=== PATIENT | female | born 1965 | race African-American/Black ===

== ENCOUNTER → 2016-12-05 | Outpatient (CLI) | payer OTHER ==
[2016-12-05 09:28] LABS: Basophils % (A) 0 %; CH 32.1; CHCM 35.6; Eosinophils # (A) 0.2 k/uL (0-0.7); Eosinophils % (A) 3 %; HCT 44.2 % (34.0-46.0); HDW 3.04; HGB 14.9 gm/dL (11.4-16.0); Luc # (Auto) 0.13; Luc % (Auto) 2; Lymphocytes # (A) 1.9 k/uL (1.0-4.8); Lymphocytes % (A) 30 %; MCH 30.6 pg (25.0-35.0); MCHC 33.7 g/dL (31.0-37.0); MCV 90.8 fL (80.0-100.0); Mean Platelet Volume 7.2; Monocytes # (A) 0.3 k/uL (0-1.0); Monocytes % (A) 5 %; Neutrophils # (A) 3.8 k/uL (1.3-7.7); Neutrophils % (A) 59 %; RBC 4.87 m/uL (3.80-5.40); RDW 13.5 % (11.5-15.5); WBC 6.3 k/uL (3.8-10.6); WBC (Perox) 6.42
[2016-12-05 09:38] LABS: ALT 31 U/L (9-52); AST 18 U/L (14-36); Alkaline Phosphatase 66 U/L (38-126); Anion Gap 10 mmol/L; Blood Urea Nitrogen 9 mg/dL (7-17); Calcium 9.5 mg/dL (8.4-10.2); Carbon Dioxide 27 mmol/L (22-30); Chloride 105 mmol/L (98-107); Cholesterol 147 mg/dL (<200); Creatine Kinase 142 U/L (30-135); Glucose 92 mg/dL (74-99); HDL Cholesterol 46 mg/dL (40-60); Non-African American GFR(MDRD) >60 (>60 ml/min/1.73 sqM); Sodium 142 mmol/L (137-145); Total Bilirubin 0.6 mg/dL (0.2-1.3); Total Protein 7.2 g/dL (6.3-8.2); Triglycerides 176 mg/dL (<150)
[2016-12-05 10:54] LABS: C Reactive Protein 5.6 mg/L (<10.0)
[2016-12-05 11:05] LABS: Hemoglobin A1C 5.8 % (4.2-6.1)
[2016-12-05 11:12] LABS: Erythrocyte Sedimentation Rate 10 mm/hr (0-20)
== END | disposition home or self-care (01) ==
LOC: LABWHC1 08:54
PROVIDERS: ATTEND Internal Medicine
DX: E11.9 Type 2 diabetes mellitus without complications (principal); J44.9 Chronic obstructive pulmonary disease, unspecified; E78.5 Hyperlipidemia, unspecified; I10 Essential (primary) hypertension; E03.9 Hypothyroidism, unspecified; E55.9 Vitamin D deficiency, unspecified; M81.0 Age-related osteoporosis without current pathological fracture
CPT/HCPCS: 36415; 80053; 80061; 82306; 82550; 83036; 84443; 85025; 85652; 86140

== ENCOUNTER 2016-12-23 07:51 | Emergency (ER) | payer OTHER ==
[2016-12-23 08:02] VITALS: BP 143/63; PULSE 84; RESP 20; TEMP 98
--- NOTE | 2016-12-23 08:17 | ED ---
General Adult HPI - General Chief complaint: Allergic Reaction Stated complaint: allergic reaction Time Seen by Provider: 12/23/16 08:10 Source: patient, RN notes reviewed Mode of arrival: ambulatory Limitations: no limitations - History of Present Illness Initial comments: 51-year-old female presents emergency Department chief complaint ALLERGIC reaction. Patient states she present swan positive patch on her left arm. She states she had 2 on states that his rationale. States it's very itchy. Patient is not taking medication for this. She has never uses in the past. Patient also complains of left hand index finger swelling and discomfort. She states is a small scratch her now to swollen. She states her tetanus is up-to- date. Patient states she has full range of motion. Patient offers no other complaints. Patient denies fever, chills - Related Data Previous Rx's Medication Instructions Recorded Methocarbamol [Robaxin] 1,000 mg PO TID PRN #15 tab 08/27/16 Cephalexin [Keflex] 500 mg PO Q6HR #40 cap 12/23/16 Triamcinolone 0.1% Cream [Kenalog] 1 applicatio TOPICAL BID #30 gram 12/23/16 Allergies Allergy/AdvReac Type Severity Reaction Status Date / Time No Known Allergies Allergy Verified 12/23/16 08:02 Review of Systems ROS Statement: Those systems with pertinent positive or pertinent negative responses have been documented in the HPI. ROS Other: All systems not noted in ROS Statement are negative. Past Medical History Past Medical History: Diabetes Mellitus, Hyperlipidemia, Hypertension History of Any Multi-Drug Resistant Organisms: None Reported Past Surgical History: Hysterectomy, Tubal Ligation Additional Past Surgical History / Comment(s): eye/tear duct surg Past Psychological History: No Psychological Hx Reported Smoking Status: Current every day smoker Past Alcohol Use History: None Reported Past Drug Use History: None Reported General Exam Limitations: no limitations General appearance: alert, in no apparent distress Head exam: Present: atraumatic, normocephalic, normal inspection Respiratory exam: Present: normal lung sounds bilaterally. Absent: respiratory distress, wheezes, rales, rhonchi, stridor Cardiovascular Exam: Present: regular rate, normal rhythm, normal heart sounds. Absent: systolic murmur, diastolic murmur, rubs, gallop, clicks Extremities exam: Present: other (Left hand index finger there is a small superficial laceration approximately 0.5 cm with swelling of the digit patient is full range of motion neurovascular intact capillary refill less than 2 seconds there is no erythematous extends past the MCP) Skin exam: Present: rash (Erythematous areas measuring 2 x 2 centimeters on the left upper arm region appears to be contact dermatitis) Course Vital Signs 12/23/16 08:01 Temperature 98.0 F Pulse Rate 84 Respiratory 20 Rate Blood Pressure 143/63 O2 Sat by Pulse 98 Oximetry Disposition Clinical Impression: Contact dermatitis, Cellulitis, finger Disposition: HOME SELF-CARE Condition: Stable Instructions: Contact Dermatitis (ED) Additional Instructions: Please return to the Emergency Department if symptoms worsen or any other concerns. Prescriptions: Cephalexin [Keflex] 500 mg PO Q6HR #40 cap Triamcinolone 0.1% Cream [Kenalog] 1 applicatio TOPICAL BID #30 gram Referrals: Dewey Ling MD [Primary Care Provider] - 1-2 days Time of Disposition: 08:17
== END 2016-12-23 08:26 | disposition home or self-care (01) ==
LOC: EC 07:51
DX: L25.9 Unspecified contact dermatitis, unspecified cause (principal); L03.012 Cellulitis of left finger; F17.200 Nicotine dependence, unspecified, uncomplicated
CPT/HCPCS: 99283

== ENCOUNTER → 2017-02-22 | Outpatient (CLI) | payer OTHER ==
[2017-02-22 15:32] LABS: Basophils % (A) 0 %; CH 32.1; CHCM 35.3; Eosinophils # (A) 0.3 k/uL (0-0.7); Eosinophils % (A) 4 %; HCT 44.1 % (34.0-46.0); HDW 3.09; HGB 15.2 gm/dL (11.4-16.0); Luc # (Auto) 0.17; Luc % (Auto) 2; Lymphocytes # (A) 2.1 k/uL (1.0-4.8); Lymphocytes % (A) 26 %; MCH 31.4 pg (25.0-35.0); MCHC 34.4 g/dL (31.0-37.0); MCV 91.4 fL (80.0-100.0); Mean Platelet Volume 7.3; Monocytes # (A) 0.4 k/uL (0-1.0); Monocytes % (A) 5 %; Neutrophils # (A) 4.9 k/uL (1.3-7.7); Neutrophils % (A) 62 %; RBC 4.83 m/uL (3.80-5.40); RDW 13.8 % (11.5-15.5); WBC 7.9 k/uL (3.8-10.6); WBC (Perox) 8.22
--- NOTE | 2017-02-22 15:42 | XR ---
EXAMINATION TYPE: XR chest 2V DATE OF EXAM: 02/22/2017 3:35 PM COMPARISON: Prior chest x-ray 07 December 2015 HISTORY: Bronchitis, cough TECHNIQUE: Frontal and lateral views of the chest are obtained. FINDINGS: There is no focal air space opacity, pleural effusion, or pneumothorax seen. The cardiac silhouette size is within normal limits. The osseous structures are intact. IMPRESSION: No acute cardiopulmonary process.
== END | disposition home or self-care (01) ==
LOC: LABWHC1 15:02
PROVIDERS: ATTEND Internal Medicine
DX: J06.9 Acute upper respiratory infection, unspecified (principal); J12.9 Viral pneumonia, unspecified
CPT/HCPCS: 36415; 71020; 85025

== ENCOUNTER → 2017-03-06 | Outpatient (CLI) | payer OTHER ==
[2017-03-06 09:57] LABS: Appearance,Urine Cloudy (Clear); Bacteria,Urine Rare /hpf; Bilirubin,Urine Negative (Negative); Glucose,Urine (UA) Negative (Negative); Ketones,Urine Negative (Negative); Leukocyte Esterase,Urine Negative (Negative); Mucus,Urine Moderate /hpf; Nitrite,Urine Negative (Negative); Particle Count 9272; Protein,Urine 2+ (Negative); RBC,Urine 2 /hpf (0-5); Specific Gravity,Urine 1.022 (1.001-1.035); Squamous Epithelial Cell,Urine 8 /hpf (0-4); UA Billing (MACRO vs. MICRO) MICRO; WBC,Urine 1 /hpf (0-5)
[2017-03-06 10:11] LABS: Anion Gap 10 mmol/L; Blood Urea Nitrogen 9 mg/dL (7-17); Calcium 9.6 mg/dL (8.4-10.2); Carbon Dioxide 23 mmol/L (22-30); Chloride 108 mmol/L (98-107); Glucose 110 mg/dL (74-99); Non-African American GFR(MDRD) >60 (>60 ml/min/1.73 sqM); Potassium 3.7 mmol/L (3.5-5.1); Sodium 141 mmol/L (137-145)
[2017-03-06 12:17] LABS: Hemoglobin A1C 5.7 % (4.2-6.1)
[2017-03-06 16:14] LABS: Creatinine,Urine Random 494.7 mg/dL
== END | disposition home or self-care (01) ==
LOC: LABWHC1 09:25
PROVIDERS: ATTEND Internal Medicine
DX: E11.21 Type 2 diabetes mellitus with diabetic nephropathy (principal); I10 Essential (primary) hypertension; R80.9 Proteinuria, unspecified
CPT/HCPCS: 36415; 80048; 81001; 82043; 82570; 83036; 84156

== ENCOUNTER → 2017-04-09 | Outpatient (CLI) | payer OTHER ==
[2017-04-09 09:33] LABS: Appearance,Urine Cloudy (Clear); Bacteria,Urine Rare /hpf; Bilirubin,Urine Negative (Negative); Glucose,Urine (UA) Negative (Negative); Ketones,Urine Negative (Negative); Leukocyte Esterase,Urine Negative (Negative); Mucus,Urine Occasional /hpf; Nitrite,Urine Negative (Negative); PH, Urine 5.5 (5.0-8.0); Particle Count 14398; Protein,Urine 2+ (Negative); RBC,Urine 4 /hpf (0-5); Specific Gravity,Urine 1.023 (1.001-1.035); Squamous Epithelial Cell,Urine 31 /hpf (0-4); UA Billing (MACRO vs. MICRO) MICRO; WBC,Urine 7 /hpf (0-5)
[2017-04-09 09:56] LABS: ALT 26 U/L (9-52); AST 17 U/L (14-36); Alkaline Phosphatase 69 U/L (38-126); Anion Gap 10 mmol/L; Blood Urea Nitrogen 12 mg/dL (7-17); Calcium 9.7 mg/dL (8.4-10.2); Carbon Dioxide 22 mmol/L (22-30); Chloride 110 mmol/L (98-107); Glucose 104 mg/dL (74-99); Non-African American GFR(MDRD) >60 (>60 ml/min/1.73 sqM); Sodium 142 mmol/L (137-145); Total Bilirubin 0.6 mg/dL (0.2-1.3); Total Protein 7.4 g/dL (6.3-8.2)
[2017-04-09 16:20] LABS: Urine Creatinine 385.1 mg/dL
== END | disposition home or self-care (01) ==
LOC: LABWHC1 08:49
PROVIDERS: ATTEND Internal Medicine
DX: E11.9 Type 2 diabetes mellitus without complications (principal); R31.9 Hematuria, unspecified; R80.9 Proteinuria, unspecified
CPT/HCPCS: 36415; 80053; 81001; 82043; 82570; 84156; 87086

== ENCOUNTER → 2017-04-30 | Outpatient (CLI) | payer OTHER ==
--- NOTE | 2017-04-30 15:45 | US ---
EXAMINATION TYPE: US kidneys/renal and bladder DATE OF EXAM: 04/30/2017 COMPARISON: CLINICAL HISTORY: N20.0 Nephrolithiasis. Patient states protein in urine. EXAM MEASUREMENTS: Right Kidney: 11.1 x 5.6 x 4.3 cm Left Kidney: 11.4 x 5.1 x 5.3 cm Right Kidney: Medial anechoic lesion in mid pole = 5.6 x 5.4 x 4.1 cm Left Kidney: lateral lower pole cystic lesion = 1.0 x 0.9 x 0.7 cm Bladder: distended. wnl as visualized. Left jet seen There is no evidence for hydronephrosis at this point in time. No nephrolithiasis is seen. The urin gucci bladder is anechoic. Bilateral ureteral jets are seen. IMPRESSION: Bilateral renal cysts. No solid mass is detected.
[2017-04-30 16:11] LABS: Total Protein 7.1 g/dL (6.3-8.2)
[2017-04-30 20:12] LABS: ANA w/Reflex to Titer NEGATIVE (NEGATIVE)
[2017-05-01 14:31] LABS: C-ANCA <1:20 Titer (<1:20); P-ANCA <1:20 Titer (<1:20)
[2017-05-02 06:30] LABS: Complement Total (CH50) 106 U/mL (42 - 95)
== END | disposition home or self-care (01) ==
LOC: RADUSWWP 14:58
PROVIDERS: ATTEND Internal Medicine
DX: N28.1 Cyst of kidney, acquired (principal); R80.9 Proteinuria, unspecified; M35.9 Systemic involvement of connective tissue, unspecified; C90.00 Multiple myeloma not having achieved remission
CPT/HCPCS: 76770; 82040; 84155; 84165; 86038; 86160; 86162; 86225; 86235; 86255; 86334; 86335

== ENCOUNTER 2017-06-16 16:59 | Emergency (ER) | payer OTHER ==
[2017-06-16 17:20] VITALS: TEMP 98.4
--- NOTE | 2017-06-16 17:41 | ED ---
General Adult HPI - General Chief complaint: ENT Stated complaint: sore throat Time Seen by Provider: 06/16/17 17:32 Source: patient, RN notes reviewed Mode of arrival: ambulatory Limitations: no limitations - History of Present Illness Initial comments: 52-year-old female presents to the emergency Department chief complaint of sore throat. Patient states that she has had a sore throat for the past 2 or 3 days. Patient states she called her doctor if she is not back in the office until Sunday. Patient denies any fever chills. She has a cough cold symptoms. She denies any nausea vomiting with this. Patient states that she just continues to have the sore throat so she was concerned.Patient denies any recent fever, chills, shortness of breath, chest pain, back pain, abdominal pain , nausea vomiting, numbness or tingling, dysuria or hematuria, constipation or diarrhea, headaches or visual changes, or any other current symptoms. - Related Data Home Medications Medication Instructions Recorded Confirmed Atorvastatin Calcium [Lipitor] 20 mg PO HS 06/16/17 06/16/17 Cholecalciferol (Vitamin D3) 2,000 units PO DAILY 06/16/17 06/16/17 [Vitamin D3] Hydrochlorothiazide 12.5 mg PO DAILY 06/16/17 06/16/17 [Hydrochlorothiazide] Losartan Potassium [Losartan 50 mg PO DAILY 06/16/17 06/16/17 Potassium] amLODIPine [Norvasc] 10 mg PO DAILY 06/16/17 06/16/17 sitaGLIPtin PHOS/metFORMIN HCL 50 mg PO BID 06/16/17 06/16/17 [Janumet 50-500 mg Tablet] Previous Rx's Medication Instructions Recorded Lidocaine Viscous 2% [Xylocaine 15 ml MUCOUS MEM BID #100 ml 06/16/17 Viscous] Allergies Allergy/AdvReac Type Severity Reaction Status Date / Time No Known Allergies Allergy Verified 06/16/17 17:20 Review of Systems ROS Statement: Those systems with pertinent positive or pertinent negative responses have been documented in the HPI. ROS Other: All systems not noted in ROS Statement are negative. Past Medical History Past Medical History: Diabetes Mellitus, Hyperlipidemia, Hypertension History of Any Multi-Drug Resistant Organisms: None Reported Past Surgical History: Hysterectomy, Tubal Ligation Additional Past Surgical History / Comment(s): eye/tear duct surg Past Psychological History: No Psychological Hx Reported Smoking Status: Current every day smoker Past Alcohol Use History: None Reported Past Drug Use History: None Reported General Exam - General Exam Comments Initial Comments: General exam: Alert, active, comfortable in no apparent distress Head: Normocephalic Eyes: Normal reaction of pupils, equal size, normal range of extraocular motion Ears: normal external ear canals, pink tympanic membranes with normal cone of light Nose: clear with pink turbinates Throat: no erythema or exudates with normal sized tonsils Neck: no masses, no nuchal rigidity Chest: no chest wall deformity Lungs: equal air entry with no crackles or wheeze CVS: S1 and S2 normal with no audible mumurs, regular rhythm Spine: no scoliosis or deformity Skin: no rashes Neurological: No focal deficits, tone is normal in all 4 extremities Limitations: no limitations Course Vital Signs 06/16/17 17:18 Temperature 98.4 F Pulse Rate 96 Respiratory 17 Rate Blood Pressure 124/70 O2 Sat by Pulse 99 Oximetry Medical Decision Making - Medical Decision Making 52-year-old female presents emergency Department chief complaint of sore throat. at this time strep is negative. we discussed care at home. we discussed return parameters and follow up and all questions have been answered. patient will be discharged home. - Lab Data Lab Results 06/16/17 Range/Units 18:13 Group A Strep Rapid Negative (Negative) Disposition Clinical Impression: Acute viral pharyngitis Disposition: HOME SELF-CARE Condition: Stable Instructions: Pharyngitis (ED) Additional Instructions: Please use medication as discussed. Please follow up with family doctor if symptoms have not improved over the next two days. Please return to the emergency room if your symptoms increase or worsen or for any other concerns. Prescriptions: Lidocaine Viscous 2% [Xylocaine Viscous] 15 ml MUCOUS MEM BID #100 ml Referrals: Dewey Ling MD [Primary Care Provider] - 1-2 days Time of Disposition: 18:40
[2017-06-16 18:55] VITALS: BP 116/75; PULSE 91; RESP 16
== END 2017-06-16 19:01 | disposition home or self-care (01) ==
LOC: EC 16:59
DX: J02.8 Acute pharyngitis due to other specified organisms (principal); B97.89 Other viral agents as the cause of diseases classified elsewhere; E11.9 Type 2 diabetes mellitus without complications; E78.5 Hyperlipidemia, unspecified; I10 Essential (primary) hypertension; F17.200 Nicotine dependence, unspecified, uncomplicated; Z79.84 Long term (current) use of oral hypoglycemic drugs; Z79.899 Other long term (current) drug therapy
CPT/HCPCS: 87081; 87430; 99283

== ENCOUNTER → 2017-10-22 | Outpatient (CLI) | payer OTHER ==
--- NOTE | 2017-10-22 11:56 | BD ---
EXAMINATION TYPE: MG DEXA axial skeleton. DATE OF EXAM: 10/22/2017 COMPARISON: NONE CLINICAL HISTORY: PT IS A 52 YR OLD FEMALE: ICD-10 CODE: Z13.820 SCREENING FOR OSTEOPOROSIS Height: 61.7 Weight: 194 FRAX RISK QUESTIONS: Alcohol (3 or more units per day): NO Family History (Parent hip fracture): NO Glucocorticoids (More than 3mos): NO (Ex: prednisone, prednisolone, methylprednisolone, dexamethasone, and hydrocortisone). History of Fracture in Adulthood: NO Secondary Osteoporosis: YES 1. Type 1 Diabetes: NO 2. Hyperthyroidism: NO 3. Menopause before 45: YES AT 45 YRS OLD 4. Malnutrition: NO 5. Chronic liver disease: NO Rheumatoid Arthritis: NO Current Tobacco Use: YES, 1 PAC DAILY RISK FACTORS HISTORY OF: Family History of Osteoporosis: NO Active: NO Diet low in dairy products/other sources of calcium: NO Postmenopausal woman: TOTAL HYST AT AGE 45 YRS OLD Hyperparathyroidism: NO Adrenal Insufficiency: NO MEDICATIONS: Additional Medications: BP MEDS, ORAL DIABETIC MEDS, VIT D, REFLUX MEDS, STATINS FOR CHOLESTEROL Additional History: DIABETIC, HYPERTENSION EXAM MEASUREMENTS: Bone mineral densitometry was performed using the [employer] System. Bone mineral density as measured about the Lumbar spine is: ----- L1-L4(G/cm2): 1.214 T Score Values are as follows: ----- L1: 0.9 ----- L2: -0.7 ----- L3: 0.1 ----- L4: 0.6 ----- L1-L4: 0.3 Bone mineral density THIS IS HER FIRST BONE DENSITY TEST Bone mineral density about the R hip (g/cm2): 1.210 Bone mineral density about the L hip (g/cm2): 1.239 T Score values are as follows: -----R Neck: 0.1 -----L Neck: 0.6 -----R Total: 1.6 -----L Total: 1.8 Bone mineral density BASELINE STUDY FRAX%S: THERE IS A 1.6% CHANCE OF A MAJOR OSTEOPOROTIC FX AND A 0.0% FOR HIP FX....PROBABILITY OF FX IN 10 YRS TIME IMPRESSION: Normal (Values between +1 and -1 indicate normal bone mass). Consider repeating this study in 5 year s or sooner if there is some new clinical indication. NOTE: T-SCORE=SD OF THE YOUNG ADULT MEAN.
--- NOTE | 2017-10-23 09:19 | MM ---
Reason for exam: screening (asymptomatic). Last mammogram was performed 1 year and 10 months ago. History: Patient is postmenopausal. Family history of breast cancer in paternal cousin at age 50. Physical Findings: A clinical breast exam by your physician is recommended on an annual basis and results should be correlated with mammographic findings. MG Screening Mammo w CAD Bilateral CC and MLO view(s) were taken. Prior study comparison: December 07, 2015, bilateral MG 3d diag mammo w/cad [facility]. There are scattered fibroglandular densities. There is chronic nodularity in the right breast. No significant changes when compared with prior studies. ASSESSMENT: Benign, BI-RAD 2 RECOMMENDATION: Routine screening mammogram of both breasts in 1 year.
== END | disposition home or self-care (01) ==
LOC: RADMAMWWP 09:12
PROVIDERS: ATTEND Obstetrics & Gynecology
DX: Z12.31 Encounter for screening mammogram for malignant neoplasm of breast (principal); Z80.3 Family history of malignant neoplasm of breast; Z13.820 Encounter for screening for osteoporosis
CPT/HCPCS: 77067; 77080

== ENCOUNTER → 2017-12-21 | Outpatient (CLI) | payer OTHER ==
[2017-12-21 09:50] LABS: Basophils % (A) 0 %; Eosinophils # (A) 0.1 k/uL (0-0.7); Eosinophils % (A) 2 %; HCT 45.4 % (34.0-46.0); Lymphocytes # (A) 1.8 k/uL (1.0-4.8); Lymphocytes % (A) 30 %; MCH 30.7 pg (25.0-35.0); MCHC 35.2 g/dL (31.0-37.0); MCV 87.3 fL (80.0-100.0); Mean Platelet Volume 7.1; Monocytes # (A) 0.3 k/uL (0-1.0); Monocytes % (A) 5 %; Neutrophils # (A) 3.7 k/uL (1.3-7.7); Neutrophils % (A) 62 %; Platelet Count 247 k/uL (150-450); RBC 5.19 m/uL (3.80-5.40); RDW 12.8 % (11.5-15.5)
[2017-12-21 10:24] LABS: ALT 22 U/L (9-52); AST 18 U/L (14-36); Albumin 3.9 g/dL (3.5-5.0); Alkaline Phosphatase 66 U/L (38-126); Anion Gap 8 mmol/L; Blood Urea Nitrogen 12 mg/dL (7-17); C Reactive Protein 10.1 mg/L (<10.0); Calcium 9.9 mg/dL (8.4-10.2); Carbon Dioxide 30 mmol/L (22-30); Chloride 104 mmol/L (98-107); Cholesterol 209 mg/dL (<200); Creatine Kinase 100 U/L (30-135); Glucose 106 mg/dL (74-99); HDL Cholesterol 46 mg/dL (40-60); LDL Cholesterol,Calculated 135 mg/dL (0-99); Potassium 4.3 mmol/L (3.5-5.1); Sodium 142 mmol/L (137-145); Total Bilirubin 0.5 mg/dL (0.2-1.3); Triglycerides 140 mg/dL (<150)
[2017-12-21 10:33] LABS: T4, Free (Free Thyroxine) 0.92 ng/dL (0.78-2.19)
[2017-12-21 12:51] LABS: Erythrocyte Sedimentation Rate 15 mm/hr (0-20)
[2017-12-21 21:01] LABS: Hemoglobin A1C 5.8 % (4.0-6.0)
== END ==
LOC: LABWHC1 08:57
PROVIDERS: ATTEND Internal Medicine
DX: D64.9 Anemia, unspecified (principal); J44.9 Chronic obstructive pulmonary disease, unspecified; E11.9 Type 2 diabetes mellitus without complications; E78.5 Hyperlipidemia, unspecified; I10 Essential (primary) hypertension; E55.9 Vitamin D deficiency, unspecified
CPT/HCPCS: 36415; 80053; 80061; 82306; 82550; 83036; 83735; 84439; 84443; 85025; 85652; 86140

== ENCOUNTER 2018-03-03 19:39 | Emergency (ER) | payer OTHER ==
[2018-03-03 19:47] VITALS: BP 124/80; PULSE 68; RESP 18; TEMP 98.4
[2018-03-03] MEDS ORDERED: IPRATROPIUM-ALBUTEROL 3 ML NEB INHALATION STA (20:02)
--- NOTE | 2018-03-03 20:12 | ED ---
URI HPI - General Chief Complaint: Upper Respiratory Infection Stated Complaint: congestion Time Seen by Provider: 03/03/18 19:59 Source: patient Mode of arrival: ambulatory Limitations: no limitations - History of Present Illness Initial Comments: 53-year-old female presents with upper respiratory symptoms for the last week. Patient having cough congestion in her chest. Patient is bringing up phlegm at times it does feel tight and wheezy. Patient does have a history of COPD and using her albuterol rescue inhaler as needed. No fevers. No head congestion. No leg edema. MD Complaint: cough - Related Data Home Medications Medication Instructions Recorded Confirmed Atorvastatin Calcium [Lipitor] 20 mg PO HS 06/16/17 06/16/17 Cholecalciferol (Vitamin D3) 2,000 units PO DAILY 06/16/17 06/16/17 [Vitamin D3] Hydrochlorothiazide 12.5 mg PO DAILY 06/16/17 06/16/17 [Hydrochlorothiazide] Losartan Potassium [Losartan 50 mg PO DAILY 06/16/17 06/16/17 Potassium] amLODIPine [Norvasc] 10 mg PO DAILY 06/16/17 06/16/17 sitaGLIPtin PHOS/metFORMIN HCL 50 mg PO BID 06/16/17 06/16/17 [Janumet 50-500 mg Tablet] Previous Rx's Medication Instructions Recorded Lidocaine Viscous 2% [Xylocaine 15 ml MUCOUS MEM BID #100 ml 06/16/17 Viscous] Albuterol Nebulized [Ventolin 2.5 mg INHALATION Q4H PRN #20 nebu 03/03/18 Nebulized] Azithromycin [Zithromax Z-pack] 250 mg PO DIRECTED #6 tab 03/03/18 methylPREDNISolone [Medrol] 4 mg PO DIRECTED #1 tab.ds.pk 03/03/18 Allergies Allergy/AdvReac Type Severity Reaction Status Date / Time No Known Allergies Allergy Verified 03/03/18 19:47 Review of Systems ROS Statement: Those systems with pertinent positive or pertinent negative responses have been documented in the HPI. ROS Other: All systems not noted in ROS Statement are negative. Constitutional: Denies: fever, chills ENT: Denies: ear pain, throat pain Respiratory: Reports: cough, wheezes Cardiovascular: Denies: chest pain Endocrine: Denies: fatigue Gastrointestinal: Denies: nausea Neurological: Denies: headache, weakness Past Medical History Past Medical History: Diabetes Mellitus, Hyperlipidemia, Hypertension History of Any Multi-Drug Resistant Organisms: None Reported Past Surgical History: Hysterectomy, Tubal Ligation Additional Past Surgical History / Comment(s): eye/tear duct surg Past Psychological History: No Psychological Hx Reported Smoking Status: Current every day smoker Past Alcohol Use History: None Reported Past Drug Use History: None Reported General Exam Limitations: no limitations General appearance: alert, in no apparent distress Eye exam: Present: normal appearance, PERRL, EOMI. Absent: scleral icterus, conjunctival injection, periorbital swelling ENT exam: Present: normal exam, mucous membranes moist Neck exam: Present: normal inspection. Absent: tenderness, meningismus, lymphadenopathy Respiratory exam: Present: normal lung sounds bilaterally, wheezes. Absent: respiratory distress, rales, rhonchi, stridor Cardiovascular Exam: Present: regular rate, normal rhythm, normal heart sounds. Absent: systolic murmur, diastolic murmur, rubs, gallop, clicks Neurological exam: Present: alert, oriented X3, CN II-XII intact Psychiatric exam: Present: normal affect, normal mood Skin exam: Present: warm, dry, intact, normal color. Absent: rash Course Vital Signs 03/03/18 03/03/18 03/03/18 19:45 20:26 20:40 Temperature 98.4 F Pulse Rate 68 68 68 Respiratory 18 Rate Blood Pressure 124/80 O2 Sat by Pulse 100 Oximetry Medical Decision Making - Medical Decision Making Reviewed x-ray negative for any acute processes. Patient aware we'll treat with oral antibiotic and steroids along with patient to continue with inhalers her up dressed as needed follow up closely with family doctor return if symptoms worsen. Disposition Clinical Impression: Bronchitis Disposition: HOME SELF-CARE Condition: Good Instructions: Acute Bronchitis (ED) Prescriptions: Albuterol Nebulized [Ventolin Nebulized] 2.5 mg INHALATION Q4H PRN #20 nebu PRN Reason: Bronchospasm Azithromycin [Zithromax Z-pack] 250 mg PO DIRECTED #6 tab methylPREDNISolone [Medrol] 4 mg PO DIRECTED #1 tab.ds.pk Is patient prescribed a controlled substance at d/c from ED?: No If prescribed controlled substance>3 days was MAPS reviewed?: No When asked, does pt state using other controlled substances?: No Referrals: Dewey Ling MD [Primary Care Provider] - 1-2 days Time of Disposition: 22:39
--- NOTE | 2018-03-03 20:15 | XR ---
EXAMINATION TYPE: XR chest 2V DATE OF EXAM: 03/03/2018 COMPARISON: 02/22/2017 HISTORY: 53-year-old female with pain TECHNIQUE: Frontal and lateral views FINDINGS: The cardiomediastinal silhouette, aorta, and pulmonary vasculature are within normal limits. Lungs an d pleural spaces are clear. IMPRESSION: No acute cardiopulmonary process.
== END 2018-03-03 20:46 | disposition home or self-care (01) ==
LOC: EC 19:39
DX: J40 Bronchitis, not specified as acute or chronic (principal); E11.9 Type 2 diabetes mellitus without complications; E78.5 Hyperlipidemia, unspecified; I10 Essential (primary) hypertension; F17.200 Nicotine dependence, unspecified, uncomplicated; Z79.84 Long term (current) use of oral hypoglycemic drugs; Z79.899 Other long term (current) drug therapy
CPT/HCPCS: 71046; 94640; 99283

== ENCOUNTER 2018-04-24 21:19 | Emergency (ER) | payer OTHER ==
[2018-04-24 21:24] VITALS: RESP 18
[2018-04-24] MEDS ORDERED: ASPIRIN 81 MG PO STA (22:18)
[2018-04-24 22:41] LABS: Basophils % (A) 0 %; Eosinophils # (A) 0.3 k/uL (0-0.7); Eosinophils % (A) 3 %; HCT 45.8 % (34.0-46.0); HGB 15.9 gm/dL (11.4-16.0); Lymphocytes # (A) 2.5 k/uL (1.0-4.8); Lymphocytes % (A) 32 %; MCH 30.4 pg (25.0-35.0); MCHC 34.7 g/dL (31.0-37.0); MCV 87.6 fL (80.0-100.0); Mean Platelet Volume 7.6; Monocytes # (A) 0.4 k/uL (0-1.0); Monocytes % (A) 5 %; Neutrophils # (A) 4.5 k/uL (1.3-7.7); Neutrophils % (A) 58 %; Platelet Count 234 k/uL (150-450); RBC 5.22 m/uL (3.80-5.40); RDW 13.4 % (11.5-15.5); WBC 7.8 k/uL (3.8-10.6)
[2018-04-24 22:50] LABS: Partial Thromboplastin Time 24.3 sec (22.0-30.0); Prothrombin Time 9.7 sec (9.0-12.0)
[2018-04-24 22:51] LABS: ALT 30 U/L (9-52); AST 21 U/L (14-36); Alkaline Phosphatase 63 U/L (38-126); Anion Gap 11 mmol/L; Blood Urea Nitrogen 11 mg/dL (7-17); Calcium 9.8 mg/dL (8.4-10.2); Carbon Dioxide 25 mmol/L (22-30); Chloride 104 mmol/L (98-107); Glucose 103 mg/dL (74-99); Magnesium 1.7 mg/dL (1.6-2.3); Potassium 3.8 mmol/L (3.5-5.1); Sodium 140 mmol/L (137-145); Total Bilirubin 0.2 mg/dL (0.2-1.3); Total Protein 6.6 g/dL (6.3-8.2)
[2018-04-24 23:01] LABS: Creatine Kinase 121 U/L (30-135)
--- NOTE | 2018-04-24 23:09 | XR ---
EXAMINATION TYPE: XR chest 2V DATE OF EXAM: 04/24/2018 COMPARISON: 03/03/2018 HISTORY: Chest pain TECHNIQUE: Frontal and lateral views of the chest are obtained. FINDINGS: Heart and mediastinum are normal. Lungs are clear. Diaphragm is normal. The bony thorax ap pears intact. There are chest leads. IMPRESSION: Normal chest. Inspiration however is decreased compared to last exam.
[2018-04-24 23:14] LABS: Creatine Kinase MB 0.7 ng/mL (0.0-2.4); Troponin I <0.012 ng/mL (0.000-0.034)
--- NOTE | 2018-04-25 00:53 | ED ---
General Adult HPI - General Chief complaint: Chest Pain Stated complaint: arm & chest pain Source: patient Mode of arrival: ambulatory Limitations: no limitations - History of Present Illness Initial comments: Dictation was produced using [employer] dictation software. please excuse any grammatical, word or spelling errors. Chief Complaint: 53-year-old -[place]e female with past medical history of diabetes, COPD, dyslipidemia presents with chest pain 2 days. History of Present Illness: Worse that she has been having chest pain for the last 2 days. Patient states that the pain is dull. Pain is associated with left arm pain. She does report having arthritis in the shoulders which she thought initially was causing her symptoms.. No associated diaphoresis. Patient has not seen a tooth cutter spur in the past. Denies any shortness of breath. She came today because she was concerned that her chest pain might be related to her heart. Denies any constitutional symptoms. Patient is active tobacco abuser. She states that she's been compliant with her medications. The ROS documented in this emergency department record has been reviewed and confirmed by me. Those systems with pertinent positive or negative responses have been documented in the HPI. All other systems are other negative and/or noncontributory. - Related Data Home Medications Medication Instructions Recorded Confirmed Atorvastatin Calcium [Lipitor] 20 mg PO HS 06/16/17 06/16/17 Cholecalciferol (Vitamin D3) 2,000 units PO DAILY 06/16/17 06/16/17 [Vitamin D3] Hydrochlorothiazide 12.5 mg PO DAILY 06/16/17 06/16/17 Losartan Potassium 50 mg PO DAILY 06/16/17 06/16/17 amLODIPine [Norvasc] 10 mg PO DAILY 06/16/17 06/16/17 sitaGLIPtin PHOS/metFORMIN HCL 50 mg PO BID 06/16/17 06/16/17 [Janumet 50-500 mg Tablet] Previous Rx's Medication Instructions Recorded Lidocaine Viscous 2% [Xylocaine 15 ml MUCOUS MEM BID #100 ml 06/16/17 Viscous] Albuterol Nebulized [Ventolin 2.5 mg INHALATION Q4H PRN #20 nebu 03/03/18 Nebulized] Azithromycin [Zithromax Z-pack] 250 mg PO DIRECTED #6 tab 03/03/18 methylPREDNISolone [Medrol] 4 mg PO DIRECTED #1 tab.ds.pk 03/03/18 Aspirin 81 mg PO DAILY #30 chewable 04/25/18 Allergies Allergy/AdvReac Type Severity Reaction Status Date / Time No Known Allergies Allergy Verified 04/24/18 21:22 Review of Systems ROS Statement: Those systems with pertinent positive or pertinent negative responses have been documented in the HPI. ROS Other: All systems not noted in ROS Statement are negative. Past Medical History Past Medical History: Diabetes Mellitus, Hyperlipidemia, Hypertension History of Any Multi-Drug Resistant Organisms: None Reported Past Surgical History: Hysterectomy, Tubal Ligation Additional Past Surgical History / Comment(s): eye/tear duct surg Past Psychological History: No Psychological Hx Reported Smoking Status: Current every day smoker Past Alcohol Use History: None Reported Past Drug Use History: None Reported General Exam - General Exam Comments Initial Comments: PHYSICAL EXAM: General Impression: Alert and oriented x3, not in acute distress HEENT: Normocephalic atraumatic, extra-ocular movements intact, pupils equal and reactive to light bilaterally, mucous membranes moist. Cardiovascular: Heart regular rate and rhythm, S1&S2 audible, no murmurs, rubs or gallops Chest: Lungs clear to auscultation bilaterally, no rhonchi, no wheeze, no rales Abdomen: Bowel sounds present, abdomen soft, non-tender, non-distended, no organomegaly Musculoskeletal: Pulses present and equal in all extremities, no peripheral edema Motor: Power 5/5 bilaterally, no focal deficits noted Neurological: CN II-XII grossly intact, no focal motor or sensory deficits noted Skin: Intact with no visualized rashes Psych: Normal affect and mood Limitations: no limitations Course Vital Signs 04/24/18 04/24/18 04/24/18 21:22 22:01 22:11 Temperature 98.6 F Pulse Rate 94 Pulse Rate [ 76 Bilateral Sitting Radial] Respiratory 18 18 Rate Blood Pressure 132/93 O2 Sat by Pulse 100 Oximetry 04/24/18 04/25/18 22:24 00:32 Temperature 97.2 F L Pulse Rate 74 68 Pulse Rate [ Bilateral Sitting Radial] Respiratory 18 18 Rate Blood Pressure 126/78 126/82 O2 Sat by Pulse 100 98 Oximetry Medical Decision Making - Medical Decision Making ED course: 53-year-old -[place] female with multiple comorbidities presents with chest pain. This chest pain is atypical with typical features. Vital signs upon arrival are within acceptable limits. Laboratory evaluation was obtained. CBC is unremarkable. Coag panel unremarkable. Metabolic panel is normal. Troponin is negative. EKG is benign. Patient given aspirin.. Discussed with patient that she would likely benefit from a stress test. Recommended that patient be placed in the hospital for observation to obtain cardiac stress test. Patient states she needed to go home and will follow up for outpatient stress test. Patient has multiple risk factors. Discussed with patient that she has risk of experiencing major adverse cardiac event within the next 30 days. Her heart score is 2. Patient is agreeable to be discharged with outpatient referral to cardiology where she may receive a stress test in approximately the next 48 hours. Patient given strict return percussions come to the emergency department if she is experiencing any dull chest ache associated with diaphoresis or radiation to the upper extremities. Patient is understandable and agreeable. Patient given prescription for aspirin to be taken daily. EKG Interpretation: A 12 lead EKG was obtained. It was interpreted by myself and attending physician. There is a P wave before every QRS complex. Rate is 65. Rhythm is normal sinus rhythm, MD and 140, QRS 88, QTC 424. QT is not prolonged. No ST segment depression or elevationto suggest heart strain or ischemia.. Overall, this EKG is unremarkable - Lab Data Result diagrams: 04/24/18 22:20 04/24/18 22:20 Lab Results 04/24/18 04/24/18 04/24/18 Range/Units 22:20 22:20 22:20 WBC 7.8 (3.8-10.6) k/uL RBC 5.22 (3.80-5.40) m/uL Hgb 15.9 (11.4-16.0) gm/dL Hct 45.8 (34.0-46.0) % MCV 87.6 (80.0-100.0) fL MCH 30.4 (25.0-35.0) pg MCHC 34.7 (31.0-37.0) g/dL RDW 13.4 (11.5-15.5) % Plt Count 234 (150-450) k/uL Neutrophils % 58 % Lymphocytes % 32 % Monocytes % 5 % Eosinophils % 3 % Basophils % 0 % Neutrophils # 4.5 (1.3-7.7) k/uL Lymphocytes # 2.5 (1.0-4.8) k/uL Monocytes # 0.4 (0-1.0) k/uL Eosinophils # 0.3 (0-0.7) k/uL Basophils # 0.0 (0-0.2) k/uL PT (9.0-12.0) sec INR (<1.2) APTT (22.0-30.0) sec Sodium 140 (137-145) mmol/L Potassium 3.8 (3.5-5.1) mmol/L Chloride 104 (98-107) mmol/L Carbon Dioxide 25 (22-30) mmol/L Anion Gap 11 mmol/L BUN 11 (7-17) mg/dL Creatinine 0.60 (0.52-1.04) mg/dL Est GFR (CKD-EPI)AfAm >90 (>60 ml/min/1.73 sqM) Est GFR (CKD-EPI)NonAf >90 (>60 ml/min/1.73 sqM) Glucose 103 H (74-99) mg/dL Calcium 9.8 (8.4-10.2) mg/dL Magnesium 1.7 (1.6-2.3) mg/dL Total Bilirubin 0.2 (0.2-1.3) mg/dL AST 21 (14-36) U/L ALT 30 (9-52) U/L Alkaline Phosphatase 63 (38-126) U/L Total Creatine Kinase 121 (30-135) U/L CK-MB (CK-2) 0.7 (0.0-2.4) ng/mL CK-MB (CK-2) Rel Index 0.6 Troponin I <0.012 (0.000-0.034) ng/mL Total Protein 6.6 (6.3-8.2) g/dL Albumin 4.0 (3.5-5.0) g/dL 04/24/18 Range/Units 22:20 WBC (3.8-10.6) k/uL RBC (3.80-5.40) m/uL Hgb (11.4-16.0) gm/dL Hct (34.0-46.0) % MCV (80.0-100.0) fL MCH (25.0-35.0) pg MCHC (31.0-37.0) g/dL RDW (11.5-15.5) % Plt Count (150-450) k/uL Neutrophils % % Lymphocytes % % Monocytes % % Eosinophils % % Basophils % % Neutrophils # (1.3-7.7) k/uL Lymphocytes # (1.0-4.8) k/uL Monocytes # (0-1.0) k/uL Eosinophils # (0-0.7) k/uL Basophils # (0-0.2) k/uL PT 9.7 (9.0-12.0) sec INR 1.0 (<1.2) APTT 24.3 (22.0-30.0) sec Sodium (137-145) mmol/L Potassium (3.5-5.1) mmol/L Chloride (98-107) mmol/L Carbon Dioxide (22-30) mmol/L Anion Gap mmol/L BUN (7-17) mg/dL Creatinine (0.52-1.04) mg/dL Est GFR (CKD-EPI)AfAm (>60 ml/min/1.73 sqM) Est GFR (CKD-EPI)NonAf (>60 ml/min/1.73 sqM) Glucose (74-99) mg/dL Calcium (8.4-10.2) mg/dL Magnesium (1.6-2.3) mg/dL Total Bilirubin (0.2-1.3) mg/dL AST (14-36) U/L ALT (9-52) U/L Alkaline Phosphatase (38-126) U/L Total Creatine Kinase (30-135) U/L CK-MB (CK-2) (0.0-2.4) ng/mL CK-MB (CK-2) Rel Index Troponin I (0.000-0.034) ng/mL Total Protein (6.3-8.2) g/dL Albumin (3.5-5.0) g/dL Disposition Clinical Impression: Chest pain Disposition: HOME SELF-CARE Condition: Fair Instructions: Chest Pain (ED) Prescriptions: Aspirin 81 mg PO DAILY #30 chewable Is patient prescribed a controlled substance at d/c from ED?: No Referrals: Dewey Ling MD [Primary Care Provider] - 1-2 days Decision Time: 00:53
[2018-04-25 01:09] VITALS: BP 121/78; PULSE 72; TEMP 97.9
== END 2018-04-25 01:11 | disposition home or self-care (01) ==
LOC: EC 21:19
DX: R07.9 Chest pain, unspecified (principal); M79.602 Pain in left arm; E11.9 Type 2 diabetes mellitus without complications; E78.5 Hyperlipidemia, unspecified; I10 Essential (primary) hypertension; F17.200 Nicotine dependence, unspecified, uncomplicated; Z90.710 Acquired absence of both cervix and uterus; Z98.51 Tubal ligation status; Z79.84 Long term (current) use of oral hypoglycemic drugs; Z79.899 Other long term (current) drug therapy
CPT/HCPCS: 36415; 71046; 80053; 82550; 82553; 83735; 84484; 85025; 85610; 85730; 93005; 99285

== ENCOUNTER → 2018-07-18 | Outpatient (CLI) | payer OTHER ==
[2018-07-18 17:23] LABS: LDL Cholesterol, Direct 82.9 mg/dL (0.0-129.0)
[2018-07-18 17:31] LABS: Vitamin D 25 Hydroxy 28.2 ng/mL (30.0-100.0)
[2018-07-18 21:49] LABS: Hemoglobin A1C 5.5 % (4.0-6.0)
== END | disposition home or self-care (01) ==
LOC: LABWHC1 09:28
PROVIDERS: ATTEND Internal Medicine
DX: E11.9 Type 2 diabetes mellitus without complications (principal); E78.5 Hyperlipidemia, unspecified
CPT/HCPCS: 36415; 82306; 82947; 83036; 83721; 85652

== ENCOUNTER → 2018-08-16 | Outpatient (CLI) | payer OTHER ==
[2018-08-16 11:14] LABS: Basophils % (A) 0 %; Eosinophils # (A) 0.2 k/uL (0-0.7); Eosinophils % (A) 3 %; HGB 14.7 gm/dL (11.4-16.0); Lymphocytes # (A) 2.2 k/uL (1.0-4.8); Lymphocytes % (A) 31 %; MCH 29.8 pg (25.0-35.0); MCHC 33.4 g/dL (31.0-37.0); Mean Platelet Volume 7.6; Monocytes # (A) 0.4 k/uL (0-1.0); Monocytes % (A) 5 %; Neutrophils # (A) 4.2 k/uL (1.3-7.7); Neutrophils % (A) 59 %; Platelet Count 268 k/uL (150-450); RBC 4.94 m/uL (3.80-5.40); RDW 13.1 % (11.5-15.5); WBC 7.2 k/uL (3.8-10.6)
--- NOTE | 2018-08-16 16:37 | XR ---
EXAMINATION TYPE: XR knee complete LT DATE OF EXAM: 08/16/2018 COMPARISON: None HISTORY: Pain, fluid in the TECHNIQUE: Three-view left knee FINDINGS: No acute fractures are evident. Joint spaces are preserved. Small joint effusion may be pre sent. Joint spaces appear preserved on the standing images. IMPRESSION: 1. Small joint effusion left knee
== END | disposition home or self-care (01) ==
LOC: LABWHC1 10:21
PROVIDERS: ATTEND Internal Medicine
DX: M25.462 Effusion, left knee (principal); M19.91 Primary osteoarthritis, unspecified site
CPT/HCPCS: 36415; 85025

== ENCOUNTER → 2019-02-25 | Outpatient (CLI) | payer OTHER ==
--- NOTE | 2019-02-25 11:31 | XR ---
EXAMINATION TYPE: XR cervical spine comp DATE OF EXAM: 02/25/2019 TECHNIQUE: Frontal, lateral, oblique, swimmers, and open mouth view of the cervical spine are obtaine d. HISTORY: DISEASE OF CERVICAL SPINE . Pain for one month with no known injury. COMPARISON: None FINDINGS: The cervical spine is visualized in its entirety from C1 thru the top of T1 level, it is s atisfactory in alignment without evidence of acute fracture or dislocation. The pre-vertebral soft t issue appears within normal limits. The C1-C2 articulation is within normal limits on the open mouth view. Posterior osteophyte is seen at C3-C4 with anterior osteophytes at C3-C4, C4-C5, and C5-C6. Mu ltilevel uncovertebral hypertrophy and facet arthropathy are seen with mild neural foraminal narrowin g at C3-C4, C4-C5 and C5-C6 on the right and at C3-C4 and C4-C5 on the left with minimal at C5-C6 on the left. IMPRESSION: No acute fracture or malalignment is seen in the cervical spine. Mild to moderate multil evel degenerative disc disease of the cervical spine with radiographic neural foraminal narrowing as described above.
== END | disposition home or self-care (01) ==
LOC: RADXRMAIN 10:18
PROVIDERS: ATTEND Internal Medicine
DX: M48.02 Spinal stenosis, cervical region (principal); M50.30 Other cervical disc degeneration, unspecified cervical region
CPT/HCPCS: 72050

== ENCOUNTER → 2019-03-24 | Outpatient (CLI) | payer OTHER ==
--- NOTE | 2019-03-26 09:42 | MM ---
Reason for exam: screening (asymptomatic). Last mammogram was performed 1 year and 5 months ago. History: Patient is postmenopausal. Family history of breast cancer in paternal cousin at age 50. Physical Findings: A clinical breast exam by your physician is recommended on an annual basis and results should be correlated with mammographic findings. MG Screening Mammo w CAD Bilateral CC and MLO view(s) were taken. Prior study comparison: October 22, 2017, bilateral MG screening mammo w CAD. December 07, 2015, bilateral MG 3d diag mammo w/cad [facility]. There are scattered fibroglandular densities. No discrete abnormality ASSESSMENT: Negative, BI-RAD 1 RECOMMENDATION: Routine screening mammogram of both breasts in 1 year.
== END | disposition home or self-care (01) ==
LOC: RADMAMWWP 09:15
PROVIDERS: ATTEND Obstetrics & Gynecology
DX: Z12.31 Encounter for screening mammogram for malignant neoplasm of breast (principal)
CPT/HCPCS: 77067

== ENCOUNTER → 2019-03-28 | Outpatient (CLI) | payer OTHER ==
[2019-03-28 10:47] LABS: Erythrocyte Sedimentation Rate 6 mm/hr (0-20)
[2019-03-28 12:57] LABS: Anisocytosis Slight; Basophils % (A) 1 %; Eosinophils # (A) 0.2 k/uL (0-0.7); Eosinophils % (A) 5 %; HCT 44.2 % (34.0-46.0); HGB 14.6 gm/dL (11.4-16.0); Lymphocytes # (A) 1.5 k/uL (1.0-4.8); Lymphocytes % (A) 30 %; MCH 29.5 pg (25.0-35.0); MCHC 33.1 g/dL (31.0-37.0); MCV 89.4 fL (80.0-100.0); Mean Platelet Volume 7.9; Monocytes # (A) 0.3 k/uL (0-1.0); Monocytes % (A) 6 %; Neutrophils # (A) 2.9 k/uL (1.3-7.7); Neutrophils % (A) 57 %; Platelet Count 214 k/uL (150-450); RBC 4.94 m/uL (3.80-5.40); RDW 16.1 % (11.5-15.5); WBC 5.1 k/uL (3.8-10.6)
[2019-03-28 16:53] LABS: ALT 33 U/L (8-44); AST 30 U/L (13-35); African American GFR (CKD) 97.6 (60.0-200.0); Albumin/Globulin Ratio 1.71 (1.60-3.17); Alkaline Phosphatase 69 U/L (41-126); C Reactive Protein <0.4 mg/dL (0.0-0.8); Calcium 9.3 mg/dL (8.7-10.3); Carbon Dioxide 29.1 mmol/L (21.6-31.8); Chloride 109 mmol/L (96-109); Cholesterol 161 mg/dL (0-200); Creatine Kinase 164 U/L (26-186); Globulin 2.4 g/dL (1.6-3.3); Glucose 89 mg/dL (70-110); Potassium 4.3 mmol/L (3.5-5.5); Sodium 144 mmol/L (135-145); Total Bilirubin 0.3 mg/dL (0.3-1.2); Total Protein 6.5 g/dL (6.2-8.2)
[2019-03-28 19:26] LABS: Hemoglobin A1C 5.7 % (4.0-6.0)
== END | disposition home or self-care (01) ==
LOC: LABWHC1 08:50
PROVIDERS: ATTEND Internal Medicine
DX: E78.5 Hyperlipidemia, unspecified (principal); D64.9 Anemia, unspecified; E11.9 Type 2 diabetes mellitus without complications; E87.8 Other disorders of electrolyte and fluid balance, not elsewhere classified; I10 Essential (primary) hypertension; E03.9 Hypothyroidism, unspecified; E55.9 Vitamin D deficiency, unspecified; M81.0 Age-related osteoporosis without current pathological fracture; M54.2 Cervicalgia
CPT/HCPCS: 36415; 80053; 80061; 82306; 82550; 83036; 85025; 85652; 86140

== ENCOUNTER → 2019-07-24 | Outpatient (CLI) | payer OTHER ==
[2019-07-24 19:05] LABS: Hemoglobin A1C 5.6 % (4.0-6.0)
== END | disposition home or self-care (01) ==
LOC: LABWHC1 09:02
PROVIDERS: ATTEND Internal Medicine
DX: E11.65 Type 2 diabetes mellitus with hyperglycemia (principal); I10 Essential (primary) hypertension
CPT/HCPCS: 36415; 82947; 83036

== ENCOUNTER → 2019-09-09 | Outpatient (CLI) | payer OTHER ==
--- NOTE | 2019-09-09 11:49 | XR ---
EXAMINATION TYPE: XR finger RT DATE OF EXAM: 09/09/2019 CLINICAL HISTORY: pain Third right digit. TECHNIQUE: 3 views of the Third right digit are submitted. COMPARISON: None FINDINGS: No displaced fracture is seen with certainty. Hypertrophic change and spurring noted at the dorsum of the distal phalanx right third digit. No distinct osseous lesion appreciated. IMPRESSION: No acute displaced fracture or dislocation.
== END | disposition home or self-care (01) ==
LOC: LABWHC1 10:32
PROVIDERS: ATTEND Podiatrist
DX: D16.11 Benign neoplasm of short bones of right upper limb (principal)

== ENCOUNTER → 2019-10-23 | Outpatient (CLI) | payer OTHER ==
--- NOTE | 2019-10-23 12:48 | MR ---
EXAMINATION TYPE: MR knee LT wo con DATE OF EXAM: 10/23/2019 COMPARISON: None HISTORY: Left knee pain TECHNIQUE: Multiplanar, multisequence imaging of the left knee is performed without IV contrast. FINDINGS: The patellar and quadriceps tendons are intact and is a trace of fluid in the suprapatellar bursa. Pa tellar cartilage is maintained and the joint spaces preserved with no erosive changes. There is fibrillation and grade II chondromalacia involving the articular surface of the medial femur . Benign-appearing cystic lesion involving the proximal fibula noted. Mild narrowing of the medial co mpartment of the knee joint with hypertrophic spurring. There is linear signal within the peripheral margin the posterior horn suspicious for a linear tear. There is increased signal along the posterior fibers of the MCL suggestive of strain or partial tear. Lateral collateral ligament intact. Posterior cruciate ligament intact Anterior cruciate demonstrates poor definition of the proximal aspects of the posterior fibers suspic ion for strain or partial tear. IMPRESSION: 1. 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 2. Linear oblique tear peripheral posterior horn medial meniscus. 3. MCL strain. Superficial tear of the posterior fibers of the medial collateral ligament not exclude d, correlate clinically. 4. Poor definition posterior fibers proximal ACL suspicious for strain and partial tear. 5. Benign-appearing lesion measuring less than a centimeter within the proximal fibula.
== END | disposition home or self-care (01) ==
LOC: RADMRIMAIN 09:31
PROVIDERS: ATTEND Orthopaedic Surgery
DX: M17.12 Unilateral primary osteoarthritis, left knee (principal); S83.222A Peripheral tear of medial meniscus, current injury, left knee, initial encounter; S83.412A Sprain of medial collateral ligament of left knee, initial encounter; M25.862 Other specified joint disorders, left knee; Z72.0 Tobacco use

== ENCOUNTER → 2020-05-17 | Outpatient (CLI) | payer OTHER ==
[2020-05-17 11:45] LABS: ALT 18 U/L (4-34); AST 20 U/L (14-36); African American GFR (CKD) >90 (>60 ml/min/1.73 sqM); Albumin 4.2 g/dL (3.5-5.0); Alkaline Phosphatase 68 U/L (38-126); Anion Gap 7 mmol/L; Blood Urea Nitrogen 8 mg/dL (7-17); Calcium 9.4 mg/dL (8.4-10.2); Carbon Dioxide 25 mmol/L (22-30); Chloride 108 mmol/L (98-107); Cholesterol 137 mg/dL (<200); Creatine Kinase 68 U/L (30-135); Glucose 94 mg/dL (74-99); HDL Cholesterol 47 mg/dL (40-60); LDL Cholesterol,Calculated 63 mg/dL (0-99); Non-African American GFR(CKD) >90 (>60 ml/min/1.73 sqM); Potassium 4.1 mmol/L (3.5-5.1); Sodium 140 mmol/L (137-145); Total Bilirubin 0.3 mg/dL (0.2-1.3); Total Protein 7.1 g/dL (6.3-8.2); Triglycerides 136 mg/dL (<150)
[2020-05-17 11:51] LABS: Basophils % (A) 1 %; Eosinophils # (A) 0.2 k/uL (0-0.7); Eosinophils % (A) 3 %; HCT 47.3 % (34.0-46.0); HGB 15.5 gm/dL (11.4-16.0); Lymphocytes # (A) 2.1 k/uL (1.0-4.8); Lymphocytes % (A) 30 %; MCHC 32.8 g/dL (31.0-37.0); MCV 91.4 fL (80.0-100.0); Mean Platelet Volume 8.5; Monocytes # (A) 0.3 k/uL (0-1.0); Monocytes % (A) 5 %; Neutrophils # (A) 4.1 k/uL (1.3-7.7); Neutrophils % (A) 59 %; Platelet Count 250 k/uL (150-450); RBC 5.17 m/uL (3.80-5.40); RDW 13.2 % (11.5-15.5); WBC 6.9 k/uL (3.8-10.6)
[2020-05-17 12:41] LABS: Erythrocyte Sedimentation Rate 6 mm/hr (0-20)
[2020-05-17 13:22] LABS: T4, Free (Free Thyroxine) 0.74 ng/dL (0.78-2.19)
[2020-05-17 21:02] LABS: Hemoglobin A1C 5.8 % (4.0-6.0)
--- NOTE | 2020-05-18 09:08 | MM ---
Reason for exam: screening (asymptomatic). Last mammogram was performed 1 year and 2 months ago. History: Patient is postmenopausal. Family history of breast cancer in paternal cousin at age 50. Physical Findings: A clinical breast exam by your physician is recommended on an annual basis and results should be correlated with mammographic findings. MG Screening Mammo w CAD Bilateral CC and MLO view(s) were taken. Prior study comparison: March 24, 2019, bilateral MG screening mammo w CAD. October 22, 2017, bilateral MG screening mammo w CAD. There are scattered fibroglandular densities. Focal asymmetry upper inner left breast. This finding is changed when compared with previous exams. ASSESSMENT: Incomplete: need additional imaging evaluation, BI-RAD 0 RECOMMENDATION: Special view mammogram of the left breast. If lesion persists on supplemental views, image directed ultrasound is recommended. [facility] will attempt to contact patient to return for supplemental views and ultrasound if indicated.
== END | disposition home or self-care (01) ==
LOC: RADMAMWWP 09:49
PROVIDERS: ATTEND Internal Medicine
DX: Z12.31 Encounter for screening mammogram for malignant neoplasm of breast (principal); I10 Essential (primary) hypertension; E87.8 Other disorders of electrolyte and fluid balance, not elsewhere classified; E78.5 Hyperlipidemia, unspecified; E11.65 Type 2 diabetes mellitus with hyperglycemia; E03.9 Hypothyroidism, unspecified
CPT/HCPCS: 36415; 77067; 80053; 80061; 82550; 83036; 84439; 84443; 85025; 85652

== ENCOUNTER → 2020-05-21 | Outpatient (CLI) | payer OTHER ==
--- NOTE | 2020-05-25 12:01 | MM ---
Reason for exam: additional evaluation requested from abnormal screening. Last mammogram was performed less than 1 month ago. History: Patient is postmenopausal. Family history of breast cancer in sister at age 60. Physical Findings: Nurse did not find any significant physical abnormalities on exam. MG Work Up Mamm w CAD LT Spot compression CC, spot compression MLO, and LM view(s) were taken of the left breast. Prior study comparison: May 17, 2020, bilateral MG screening mammo w CAD. March 24, 2019, bilateral MG screening mammo w CAD. The breast tissue is heterogeneously dense. This may lower the sensitivity of mammography. Finding: There is a 6 mm equal density (isodense), oval mass in the inner quadrant, central position of the left breast. These results were verbally communicated with the patient and result sheet given to the patient on 05/21/20. ASSESSMENT: Incomplete: need additional imaging evaluation, BI-RAD 0 RECOMMENDATION: Ultrasound of the left breast.
--- NOTE | 2020-05-25 12:03 | USB ---
Reason for exam: additional evaluation requested from abnormal screening. History: Patient is postmenopausal. Family history of breast cancer in sister at age 60. US Breast Workup Limited LT Left limited breast ultrasound including focal area of concern, retroareolar and axilla demonstrates a 7 x 3 x 7mm mixed lesion at 9 o'clock. These results were verbally communicated with the patient and result sheet given to the patient on 05/21/20. ASSESSMENT: Suspicious, BI-RAD 4 RECOMMENDATION: Ultrasound core biopsy of the left breast. Called office with mammographic findings and has scheduled an appointment for the patient for 06/01/20 at 10:[address] Ling. PRELIMINARY REPORT CALLED AND FAXED TO DR. LING ON 05/25/20.
== END | disposition home or self-care (01) ==
LOC: RADMAMWWP 08:12
PROVIDERS: ATTEND Internal Medicine
DX: R92.8 Other abnormal and inconclusive findings on diagnostic imaging of breast (principal)
CPT/HCPCS: 77065

== ENCOUNTER → 2020-06-15 | Day surgery (SDC) | payer OTHER ==
[2020-06-15 12:02] VITALS: RESP 16
--- NOTE | 2020-06-15 13:36 | USB ---
EXAMINATION TYPE: US biopsy breast VAD LT, MG diagnostic mammo LT wo CAD DATE OF EXAM: 06/15/2020 CLINICAL HISTORY: R92.8 Abnormal Mammogram. Abnormal ultrasound. TECHNIQUE: Ultrasound guided core biopsy of left breast. COMPARISON: Prior left breast mammogram and ultrasound May 21, 2020 and older mammograms. FINDINGS: The procedure of ultrasound guided core biopsy was explained to the patient. Benefits, alternatives, and risks were discussed. An informed consent was then obtained. The patient was placed in supine positioning for imaging and for the procedure. Preprocedure ultrasound redemonstrates an oval roughly 8 mm anechoic lesion with suspected septation 9 o'clock position zone A in the left breast. The overlying skin was prepped and draped in usual sterile fashion. Lidocaine is used as anesthetic into the skin and subcutaneous tissue up to area of concern in the left breast. Under ultrasound guidance, a vacuum assisted biopsy gun device was used to obtain 2 core samples. Following this, a biopsy clip was left in lesion. Lesion decreased in size after sampling. The patient tolerated the procedure well without any immediate complication. The patient was kept in the radiology department for short stay after the procedure and then discharged home in stable condition. Post procedure mammogram shows successful deployment of clip. Clip slightly more anterior in position to the area of concern on the true lateral view. Area of concern appears to disperse on additional views. IMPRESSION: Successful, uncomplicated ultrasound guided core biopsy of area of concern in left breast, full pathology results to follow. Low index of suspicion noted at time of procedure. Pathology Results: Benign LEFT BREAST, ULTRASOUND GUIDED CORE BIOPSY: Fibrocystic changes including apocrine cyst and adjacent fibrosis. Recommendation Follow up mammogram of the left breast in 6 months. NAYAN
[2020-06-15 13:40] VITALS: BP 123/93; PULSE 71; TEMP 98.5
== END ==
LOC: RADUSWWP 11:42
PROVIDERS: ATTEND Internal Medicine
DX: N60.12 Diffuse cystic mastopathy of left breast (principal)
CPT/HCPCS: 88305; 77065; 19083; A4648; J2001

== ENCOUNTER → 2020-12-16 | Outpatient (CLI) | payer OTHER ==
--- NOTE | 2020-12-16 11:01 | MM ---
Reason for exam: follow-up at short interval from prior study. Last mammogram was performed 6 months ago. History: Patient is postmenopausal. Family history of breast cancer in sister at age 60. Benign US biopsy breast VAD LT of the left breast, June 15, 2020. Physical Findings: Nurse did not find any significant physical abnormalities on exam. MG Diagnostic Mammo LT w CAD CC and MLO view(s) were taken of the left breast. Prior study comparison: June 15, 2020, left breast MG diagnostic mammo LT wo CAD. May 21, 2020, left breast MG work up mamm w CAD LT. There are scattered fibroglandular densities. Previous mammotome biopsy in the left breast. There is no discrete abnormality. These results were verbally communicated with the patient and result sheet given to the patient on 12/16/20. ASSESSMENT: Benign, BI-RAD 2 RECOMMENDATION: Return to routine screening mammogram schedule for both breasts. Back on schedule.
== END ==
LOC: RADMAMWWP 10:11
PROVIDERS: ATTEND Internal Medicine
DX: R92.8 Other abnormal and inconclusive findings on diagnostic imaging of breast (principal); Z80.3 Family history of malignant neoplasm of breast; Z78.0 Asymptomatic menopausal state
CPT/HCPCS: 77065

== ENCOUNTER → 2021-08-09 | Outpatient (CLI) | payer OTHER ==
--- NOTE | 2021-08-10 10:37 | MM ---
Reason for exam: screening (asymptomatic). Last mammogram was performed 8 months ago. History: Patient is postmenopausal. Family history of breast cancer in sister at age 60. Benign US biopsy breast VAD LT of the left breast, June 15, 2020. Physical Findings: A clinical breast exam by your physician is recommended on an annual basis and results should be correlated with mammographic findings. MG Screening Mammo w CAD Bilateral CC and MLO view(s) were taken. Prior study comparison: December 16, 2020, left breast MG diagnostic mammo LT w CAD. June 15, 2020, left breast MG diagnostic mammo LT wo CAD. There are scattered fibroglandular densities. There is no discrete abnormality. No significant changes when compared with prior studies. ASSESSMENT: Negative, BI-RAD 1 RECOMMENDATION: Routine screening mammogram of both breasts in 1 year.
== END | disposition home or self-care (01) ==
LOC: RADMAMWWP 10:24
PROVIDERS: ATTEND Internal Medicine
DX: Z12.31 Encounter for screening mammogram for malignant neoplasm of breast (principal); Z80.3 Family history of malignant neoplasm of breast; Z78.0 Asymptomatic menopausal state
CPT/HCPCS: 77067

== ENCOUNTER → 2021-11-02 | Outpatient (CLI) | payer OTHER ==
--- NOTE | 2021-11-02 11:05 | XR ---
EXAMINATION TYPE: XR chest 2V DATE OF EXAM: 11/02/2021 COMPARISON: 04/24/2018 INDICATION: Short of breath, COPD TECHNIQUE: Frontal and lateral views of the chest are obtained. FINDINGS: The heart size is normal. The pulmonary vasculature is normal. The lungs are clear. IMPRESSION: 1. No acute pulmonary process.
[2021-11-02 11:49] LABS: Basophils % (A) 1 %; Eosinophils # (A) 0.3 k/uL (0-0.7); Eosinophils % (A) 4 %; HCT 47.6 % (34.0-46.0); HGB 15.9 gm/dL (11.4-16.0); Lymphocytes % (A) 32 %; MCH 30.7 pg (25.0-35.0); MCHC 33.3 g/dL (31.0-37.0); MCV 92.2 fL (80.0-100.0); Mean Platelet Volume 9.1; Monocytes # (A) 0.3 k/uL (0-1.0); Monocytes % (A) 4 %; Neutrophils # (A) 3.6 k/uL (1.3-7.7); Neutrophils % (A) 57 %; Platelet Count 245 k/uL (150-450); RBC 5.16 m/uL (3.80-5.40); RDW 13.3 % (11.5-15.5); WBC 6.3 k/uL (3.8-10.6)
[2021-11-02 14:22] LABS: Erythrocyte Sedimentation Rate 13 mm/hr (0-20)
[2021-11-02 19:20] LABS: ALT 18 U/L (8-44); AST 17 U/L (13-35); African American GFR (CKD) 99.5 (60.0-200.0); Albumin 4.1 g/dL (3.8-4.9); Alkaline Phosphatase 90 U/L (41-126); Blood Urea Nitrogen 12.2 mg/dL (9.0-27.0); Calcium 9.8 mg/dL (8.7-10.3); Carbon Dioxide 23.2 mmol/L (20.0-27.5); Chloride 104 mmol/L (96-109); Creatine Kinase 117 U/L (26-186); Glucose 130 mg/dL (70-110); Magnesium 1.9 mg/dL (1.5-2.4); Non-African American GFR(CKD) 85.8 (60.0-200.0); Phosphorus 3.1 mg/dL (2.4-5.1); Potassium 4.4 mmol/L (3.5-5.5); Sodium 140 mmol/L (135-145); Total Protein 7.2 g/dL (6.2-8.2); Uric Acid 6.6 mg/dL (2.9-7.7)
[2021-11-03 05:31] LABS: Chol/HDL Ratio 7.57 Ratio; LDL Cholesterol,Calculated 186.9 mg/dL (0.0-131.0)
== END | disposition home or self-care (01) ==
LOC: RADXRMAIN 10:12
PROVIDERS: ATTEND Internal Medicine
DX: J44.9 Chronic obstructive pulmonary disease, unspecified (principal); D64.9 Anemia, unspecified; I10 Essential (primary) hypertension; E78.5 Hyperlipidemia, unspecified; E11.65 Type 2 diabetes mellitus with hyperglycemia; R80.9 Proteinuria, unspecified
CPT/HCPCS: 36415; 71046; 80053; 80061; 82306; 82550; 83036; 83735; 84100; 84439; 84443; 84550; 85025; 85652; 86140

== ENCOUNTER → 2022-02-08 | Outpatient (CLI) | payer OTHER | END | disposition home or self-care (01) | LOC: LABWHC1 09:33 | PROVIDERS: ATTEND Internal Medicine | DX: E78.5 Hyperlipidemia, unspecified (principal); E55.9 Vitamin D deficiency, unspecified | CPT/HCPCS: 36415; 82306; 82947; 83036; 83721; 84450; 84460 ==

== ENCOUNTER → 2022-08-16 | Outpatient (CLI) | payer OTHER ==
[2022-08-16 14:42] LABS: African American GFR (CKD) 95.2 (60.0-200.0); Anion Gap 10.3 mmol/L (10.00-18.00); BUN/Creat Ratio 15.09 Ratio (12.00-20.00); Blood Urea Nitrogen 12.1 mg/dL (9.0-27.0); Calcium 9.6 mg/dL (8.7-10.3); Carbon Dioxide 25.9 mmol/L (20.0-27.5); Non-African American GFR(CKD) 82.2 (60.0-200.0); Potassium 3.9 mmol/L (3.5-5.5)
== END | disposition home or self-care (01) ==
LOC: LABWHC1 09:35
PROVIDERS: ATTEND Internal Medicine
DX: I10 Essential (primary) hypertension (principal); E87.8 Other disorders of electrolyte and fluid balance, not elsewhere classified; E78.5 Hyperlipidemia, unspecified; E11.65 Type 2 diabetes mellitus with hyperglycemia
CPT/HCPCS: 36415; 80048; 83036; 85652; 86140

== ENCOUNTER → 2022-08-30 | Outpatient (CLI) | payer OTHER ==
--- NOTE | 2022-08-31 18:37 | MM ---
Reason for Exam: Screening (asymptomatic). Last mammogram was performed 1 year(s) and 1 month(s) ago. Patient History: Menarche at age 12. First Full-Term at age 17. Hysterectomy at age 45. Postmenopausal. 06/15/2020, Benign Core Biopsy on the left side. Sister had breast cancer, age 60. Risk Values: Carina 5 year model risk: 3.0%. NCI Lifetime model risk: 18.3%. Prior Study Comparison: 06/15/2020 Left Diagnostic Mammogram, [facility]. 12/16/2020 Left Diagnostic Mammogram, [facility]. 08/09/2021 Bilateral Screening Mammogram, [facility]. Tissue Density: There are scattered fibroglandular densities. Findings: Analyzed By CAD. Microclip left breast from prior biopsy. There is a centrally located asymmetric density right CC view that is more defined. Further evaluation recommended. Otherwise, no significant change. Overall Assessment: Incomplete: need additional imaging evaluation, BI-RAD 0 Management: Special View Mammogram of the right breast. Include spot 3-D CC, 3-D CC rolled medial, spot 3-D MLO, and 3-D lateral views. Targeted right breast ultrasound if any persisting abnormality. [facility] will attempt to contact patient to return for supplemental views and ultrasound if indicated. Electronically signed and approved by: Michell Poe M.D. Radiologist
== END | disposition home or self-care (01) ==
LOC: RADMAMWWP 09:15
PROVIDERS: ATTEND Internal Medicine
DX: Z12.31 Encounter for screening mammogram for malignant neoplasm of breast (principal); Z78.0 Asymptomatic menopausal state; Z80.3 Family history of malignant neoplasm of breast
CPT/HCPCS: 77067

== ENCOUNTER → 2022-09-05 | Outpatient (CLI) | payer OTHER ==
--- NOTE | 2022-09-05 14:00 | MM ---
Reason for Exam: Additional evaluation requested from abnormal screening. Last screening mammogram was performed less than 1 month ago. Patient History: Menarche at age 12. First Full-Term at age 17. Hysterectomy at age 45. Postmenopausal. 06/15/2020, Benign Core Biopsy on the left side. Sister had breast cancer, age 60. Risk Values: Carina 5 year model risk: 3.0%. NCI Lifetime model risk: 18.3%. Prior Study Comparison: 12/16/2020 Left Diagnostic Mammogram, [facility]. 08/09/2021 Bilateral Screening Mammogram, [facility]. 08/30/2022 Bilateral MG screening mammo w CAD, [facility]. Tissue Density: Right: There are scattered fibroglandular densities. Findings: Analyzed By CAD. There is a 9 mm focal asymmetry lower outer quadrant right breast 7 to 8:00 position. This becomes less defined on the spot compression MLO view. Further ultrasound evaluation recommended. Overall Assessment: Incomplete: need additional imaging evaluation, BI-RAD 0 Management: Diagnostic Breast Ultrasound of the right breast. 7-8 o'clock position lower outer quadrant. Electronically signed and approved by: Michell Poe M.D. Radiologist
--- NOTE | 2022-09-05 15:37 | USB ---
Reason for Exam: Additional evaluation requested from abnormal screening. Patient History: Menarche at age 12. First Full-Term at age 17. Hysterectomy at age 45. Postmenopausal. 06/15/2020, Benign Core Biopsy on the left side. Sister had breast cancer, age 60. Risk Values: Carina 5 year model risk: 3.0%. NCI Lifetime model risk: 18.3%. Technique: Method: Targeted. Prior Study Comparison: 12/16/2020 Left Diagnostic Mammogram, [facility]. 08/09/2021 Bilateral Screening Mammogram, [facility]. 08/30/2022 Bilateral MG screening mammo w CAD, [facility]. Findings: The lower outer quadrant of the right breast, the axilla of the right breast and the retroareolar of the right breast were scanned. Targeted scanning right breast lower outer quadrant 6:00 to 9:00 including scanning of the subareolar region and axilla. There is no solid or cystic lesion to correspond to the mammographic focal asymmetry. Six-month follow-up mammogram can be performed.. Overall Assessment: Probably benign, BI-RAD 3 Management: Diagnostic Mammogram of the right breast in 6 months. 1. Patient should continue monthly self breast exams. 2. A clinical breast exam by your physician is recommended on an annual basis. 3. This exam should not preclude additional follow-up of suspicious palpable abnormalities. Results were given to the patient verbally at the time of exam. Electronically signed and approved by: Michell Poe M.D. Radiologist
== END | disposition home or self-care (01) ==
LOC: RADMAMWWP 13:06
PROVIDERS: ATTEND Internal Medicine
DX: R92.8 Other abnormal and inconclusive findings on diagnostic imaging of breast (principal); Z78.0 Asymptomatic menopausal state; Z80.3 Family history of malignant neoplasm of breast
CPT/HCPCS: 77065

== ENCOUNTER → 2023-02-26 | Outpatient (CLI) | payer OTHER ==
--- NOTE | 2023-02-26 10:46 | MM ---
Reason for Exam: Follow-up at short interval from prior study. Last screening mammogram was performed 6 month(s) ago. Patient History: Menarche at age 12. First Full-Term at age 17. Hysterectomy at age 45. Postmenopausal. 06/15/2020, Benign Core Biopsy on the left side. Sister had breast cancer, age 60. Risk Values: Carina 5 year model risk: 3.1%. NCI Lifetime model risk: 17.9%. Prior Study Comparison: 08/09/2021 Bilateral Screening Mammogram, [facility]. 08/30/2022 Bilateral MG screening mammo w CAD, [facility]. 09/05/2022 Right MG work up mamm w CAD RT, [facility]. Tissue Density: There are scattered fibroglandular densities. Findings: Analyzed By CAD. Pattern appears symmetrical and stable. No significant interval change is evident. A core marker is within the left breast. No suspicious groups of microcalcifications, spiculated or lobular masses, architectural distortion or other secondary signs of malignancy are mammographically apparent. Overall Assessment: Benign, BI-RAD 2 Management: Screening Mammogram of both breasts in 1 year. A negative mammogram report should not preclude additional follow up of suspicious palpable abnormalities. Patient should continue monthly self breast exam. A clinical breast exam by your physician is recommended on an annual basis and results should be correlated with mammographic findings. Electronically signed and approved by: Manuel Newby D.O. Radiologis
== END | disposition home or self-care (01) ==
LOC: RADMAMWWP 10:22
PROVIDERS: ATTEND Internal Medicine
DX: R92.2 Inconclusive mammogram (principal); R92.8 Other abnormal and inconclusive findings on diagnostic imaging of breast; Z78.0 Asymptomatic menopausal state; Z80.3 Family history of malignant neoplasm of breast
CPT/HCPCS: 77066

== ENCOUNTER → 2023-06-25 | Outpatient (CLI) | payer OTHER ==
[2023-06-25 16:42] LABS: ALT 14 U/L (8-44); AST 17 U/L (13-35); Albumin 4.4 d/dL (3.8-4.9); Albumin/Globulin Ratio 1.76 Ratio (1.60-3.17); Alkaline Phosphatase 80 U/L (41-126); BUN/Creat Ratio 15.25 Ratio (12.00-20.00); Blood Urea Nitrogen 12.2 mg/dL (9.0-27.0); Calcium 9.9 mg/dL (8.7-10.3); Carbon Dioxide 24.6 mmol/L (21.6-31.8); Chloride 106 mmol/L (96-109); Chol/HDL Ratio 4.89 Ratio; Creatine Kinase 88 U/L (26-186); Globulin 2.5 d/dL (1.6-3.3); Glucose 80 mg/dL (70-110); LDL Cholesterol,Calculated 92.6 mg/dL (0.0-131.0); Magnesium 2.1 mg/dL (1.5-2.4); Phosphorus 3.3 mg/dL (2.4-5.1); Potassium 4.8 mmol/L (3.5-5.5); Sodium 143 mmol/L (135-145); Total Bilirubin <0.2 mg/dL (0.3-1.2); Total Protein 6.9 d/dL (6.2-8.2); Uric Acid 5.6 mg/dL (2.9-7.7)
[2023-06-25 18:26] LABS: Basophils # (A) 0.03 X 10*3/uL (0.00-0.10); Basophils % (A) 0.5 %; Eosinophils # (A) 0.23 X 10*3/uL (0.04-0.35); Eosinophils % (A) 3.8 %; HCT 44.4 % (37.2-46.3); HGB 15.2 d/dL (12.0-15.0); Lymphocytes # (A) 2.16 X 10*3/uL (0.90-5.00); Lymphocytes % (A) 35.2 %; MCH 30.8 pg (27.0-32.0); MCHC 34.2 d/dL (32.0-37.0); MCV 89.9 FL (80.0-97.0); Mean Platelet Volume 11.2 FL (9.5-12.2); Monocytes # (A) 0.42 X 10*3/uL (0.20-1.00); Monocytes % (A) 6.9 %; NRBC Per 100 WBC 0 X 10*3/uL (0.00-0.01); Neutrophils # (A) 3.27 X 10*3/uL (1.80-7.70); Neutrophils % (A) 53.3 %; Platelet Count 247 X 10*3/uL (140-440); RBC 4.94 X 10*6/uL (4.10-5.20); RDW 13.9 % (11.5-14.5); WBC 6.13 X 10*3/uL (4.50-10.00)
== END | disposition home or self-care (01) ==
LOC: LABWHC1 09:27
PROVIDERS: ATTEND Internal Medicine
DX: Z00.00 Encounter for general adult medical examination without abnormal findings (principal); I10 Essential (primary) hypertension; E55.9 Vitamin D deficiency, unspecified; E11.65 Type 2 diabetes mellitus with hyperglycemia; D64.9 Anemia, unspecified; J44.9 Chronic obstructive pulmonary disease, unspecified; M10.9 Gout, unspecified; E78.5 Hyperlipidemia, unspecified; E03.9 Hypothyroidism, unspecified; M19.90 Unspecified osteoarthritis, unspecified site
CPT/HCPCS: 36415; 80053; 80061; 82043; 82306; 82550; 82570; 83036; 83735; 84100; 84443; 84550; 85025; 86140

== ENCOUNTER → 2023-11-28 | Outpatient (CLI) | payer OTHER | END | disposition home or self-care (01) | LOC: RADMAMWWP 10:25 | PROVIDERS: ATTEND Internal Medicine | DX: Z53.9 Procedure and treatment not carried out, unspecified reason (principal) ==

== ENCOUNTER → 2023-12-19 | Outpatient (CLI) | payer OTHER ==
--- NOTE | 2023-12-19 17:37 | CA ---
Transthoracic Echo Report Name: Kita Baez Age: 58 Gender: F : 1965 Exam Date: 12/19/2023 12:06 Exam Location: [facility] Ht (in): 62 Wt (lb): 208 Ordering Physician: Dewey Ling MD Attending/Referring Phys: Dewey Ling MD Camera Technician Dipika Dsouza RDCS Procedure CPT: Indications: I10 HYPERTENSION I21.09 STEMI INVOLVING OTH ABERNATHY Cardiac Hx: Technical Quality: Fair Contrast 1: Total Dose (mL): Contrast 2: Total Dose (mL): MEASUREMENTS (Male / Female) Normal Values 2D ECHO LV Diastolic Diameter PLAX 4.1 cm 4.2 - 5.9 / 3.9 - 5.3 cm LV Systolic Diameter PLAX 1.8 cm IVS Diastolic Thickness 1.0 cm 0.6 - 1.0 / 0.6 - 0.9 cm LVPW Diastolic Thickness 1.0 cm 0.6 - 1.0 / 0.6 - 0.9 cm LV Relative Wall Thickness 0.5 RV Internal Dim ED PLAX 3.6 cm LA Volume 44.5 cm??? 18 - 58 / 22 - 52 cm??? LA Volume Index 21.4 cm???/m??? 16 - 28 cm???/m??? M-MODE Aortic Root Diameter MM 2.9 cm LA Systolic Diameter MM 3.8 cm LA Ao Ratio MM 1.3 AV Cusp Separation MM 1.7 cm DOPPLER AV Peak Velocity 132.5 cm/s AV Peak Gradient 7.0 mmHg AV Mean Velocity 82.9 cm/s AV Mean Gradient 3.2 mmHg AV Velocity Time Integral 23.3 cm LVOT Peak Velocity 97.4 cm/s LVOT Peak Gradient 3.8 mmHg LVOT Velocity Time Integral 18.1 cm MV Area PHT 3.5 cm??? Mitral E Point Velocity 100.4 cm/s Mitral A Point Velocity 89.2 cm/s Mitral E to A Ratio 1.1 MV Deceleration Time 218.2 ms MV E' Velocity 8.2 cm/s Mitral E to MV E' Ratio 12.3 TR Peak Velocity 198.9 cm/s TR Peak Gradient 15.8 mmHg Right Ventricular Systolic Press 19.3 mmHg FINDINGS Left Ventricle Mildly increased left ventricular wall thickness. Left ventricular cavity size normal. Normal left ventricular systolic function with no obvious regional wall motion abnormalities. Left ventricular ejection fraction is estimated at 55-60 %. Right Ventricle Mild right ventricular dilatation. Normal right ventricular global systolic function. Right ventricular systolic pressure within normal limits. Right Atrium Normal right atrial size. Left Atrium Normal left atrial size. Mitral Valve Structurally normal mitral valve. No mitral stenosis. Mild mitral regurgitation. Aortic Valve Trileaflet aortic valve. No aortic valve stenosis or regurgitation. Tricuspid Valve Structurally normal tricuspid valve. Mild tricuspid regurgitation. Pulmonic Valve Structurally normal pulmonic valve. Trace pulmonic regurgitation. Pericardium No pericardial effusion. Aorta Normal size aortic root and proximal ascending aorta. CONCLUSIONS Normal LV function Previewed by: Dr. Dallas Brown MD (Electronically Signed) Final Date: 19 December 2023 17:37
== END | disposition home or self-care (01) ==
LOC: RADECHMAIN 11:16
PROVIDERS: ATTEND Internal Medicine
DX: I21.09 ST elevation (STEMI) myocardial infarction involving other coronary artery of anterior wall (principal); I10 Essential (primary) hypertension
CPT/HCPCS: 93306

== ENCOUNTER → 2024-05-26 | Outpatient (CLI) | payer OTHER | END | disposition home or self-care (01) | LOC: LABWHC1 11:10 | PROVIDERS: ATTEND Internal Medicine | DX: I10 Essential (primary) hypertension (principal); E11.65 Type 2 diabetes mellitus with hyperglycemia; E55.9 Vitamin D deficiency, unspecified; D64.9 Anemia, unspecified | CPT/HCPCS: 36415; 80053; 82306; 83036; 85025 ==

== ENCOUNTER → 2024-06-18 | Outpatient (CLI) | payer OTHER ==
[2024-06-18 10:48] LABS: Creatinine,Urine Random 191.6 mg/dL; Protein/Creatinine Ratio,Urine 0.553
[2024-06-18 15:46] LABS: BUN/Creat Ratio 13.62 Ratio (12.00-20.00); Blood Urea Nitrogen 10.9 mg/dL (9.0-27.0); Calcium 9.4 mg/dL (8.7-10.3); Carbon Dioxide 24.4 mmol/L (21.6-31.8); Chloride 103 mmol/L (96-109); Glucose 158 mg/dL (70-110); Potassium 3.9 mmol/L (3.5-5.5); Sodium 141 mmol/L (135-145)
[2024-06-18 16:05] LABS: Appearance,Urine Cloudy (Clear); Bilirubin,Urine Negative (Negative); Blood,Urine Negative (Negative); Color,Urine Yellow (Yellow); Ketones,Urine Negative (Negative); Nitrite,Urine Negative (Negative); PH, Urine 5.5; Specific Gravity,Urine 1.021 (1.001-1.030)
[2024-06-18 16:27] LABS: Bacteria,Urine 3+ (None Seen)
== END | disposition home or self-care (01) ==
LOC: LABWHC1 09:15
PROVIDERS: ATTEND Internal Medicine
DX: E11.65 Type 2 diabetes mellitus with hyperglycemia (principal); E11.22 Type 2 diabetes mellitus with diabetic chronic kidney disease; N18.2 Chronic kidney disease, stage 2 (mild)
CPT/HCPCS: 36415; 80048; 81001; 82043; 82570; 83036; 84156

== ENCOUNTER → 2024-08-25 | Outpatient (CLI) | payer OTHER ==
[2024-08-25 15:43] LABS: Calcium 10.2 mg/dL (8.7-10.3); Carbon Dioxide 26.7 mmol/L (21.6-31.8); Chloride 106 mmol/L (96-109); Glucose 138 mg/dL (70-110); Magnesium 1.8 mg/dL (1.5-2.4); Sodium 145 mmol/L (135-145)
== END | disposition home or self-care (01) ==
LOC: LABWHC1 09:05
PROVIDERS: ATTEND Internal Medicine
DX: E87.8 Other disorders of electrolyte and fluid balance, not elsewhere classified (principal); E11.65 Type 2 diabetes mellitus with hyperglycemia
CPT/HCPCS: 36415; 80048; 83036; 83735

== ENCOUNTER → 2025-02-02 | Outpatient (CLI) | payer OTHER ==
[2025-02-02 15:50] LABS: Blood Urea Nitrogen 8.7 mg/dL (9.0-27.0); Calcium 9.7 mg/dL (8.7-10.3); Carbon Dioxide 24.8 mmol/L (21.6-31.8); Chloride 107 mmol/L (96-109); Glucose 102 mg/dL (70-110); Potassium 4.3 mmol/L (3.5-5.5); Sodium 143 mmol/L (135-145)
== END | disposition home or self-care (01) ==
LOC: LABWHC1 09:21
PROVIDERS: ATTEND Internal Medicine
DX: I10 Essential (primary) hypertension (principal); E87.8 Other disorders of electrolyte and fluid balance, not elsewhere classified; E11.65 Type 2 diabetes mellitus with hyperglycemia
CPT/HCPCS: 36415; 80048; 83036

== ENCOUNTER → 2025-04-30 | Outpatient (CLI) | payer OTHER ==
--- NOTE | 2025-04-30 11:15 | MM ---
Reason for Exam: Hx of benign breast biopsy. Last mammogram was performed 2 year(s) and 2 month(s) ago. Patient History: Menarche at age 12. First Full-Term at age 17. Hysterectomy at age 45. Postmenopausal. 06/15/2020, Benign Core Biopsy on the left side. Sister had breast cancer, age 60. Risk Values: Carina 5 year model risk: 2.3%. NCI Lifetime model risk: 11.1%. Prior Study Comparison: 10/22/2017 Bilateral Screening Mammogram, [facility]. 03/24/2019 Bilateral Screening Mammogram, [facility]. 05/17/2020 Bilateral Screening Mammogram, [facility]. 05/21/2020 Left Diagnostic Mammogram, [facility]. 06/15/2020 Left Diagnostic Mammogram, [facility]. 12/16/2020 Left Diagnostic Mammogram, [facility]. 08/09/2021 Bilateral Screening Mammogram, [facility]. 08/30/2022 Bilateral MG screening mammo w CAD, [facility]. 09/05/2022 Right MG work up mamm w CAD RT, [facility]. 02/26/2023 Bilateral MG diagnostic mammo w CAD [place], [facility]. Tissue Density: The breasts are heterogeneously dense, which may obscure small masses. Findings: Analyzed By CAD. Benign calcifications. Surgical clip near the left breast. No architectural distortion. Overall Assessment: Benign, BI-RAD 2 Management: Screening Mammogram of both breasts in 1 year. . Results were given to the patient verbally at the time of exam. Patient should continue monthly self-breast exams. A clinical breast exam by your physician is recommended on an annual basis. This exam should not preclude additional follow-up of suspicious palpable abnormalities. Note on Carina scores and lifetime risk: 1. A Carina score greater than 3% is considered moderate risk. If this is the case, consider specialist referral to assess eligibility for a risk reducing agent. 2. If overall lifetime risk for the development of breast cancer is 20% or higher, the patient may qualify for future screening with alternating mammogram and breast MRI. [facility], , 04/30/2025 11:11 AM. Electronically signed and approved by: Raymond Summers M.D. Radiologis
== END | disposition home or self-care (01) ==
LOC: RADMAMWWP 10:32
PROVIDERS: ATTEND Internal Medicine
DX: R92.8 Other abnormal and inconclusive findings on diagnostic imaging of breast (principal); R92.333 Mammographic heterogeneous density, bilateral breasts; R92.1 Mammographic calcification found on diagnostic imaging of breast; Z80.3 Family history of malignant neoplasm of breast; Z78.0 Asymptomatic menopausal state
CPT/HCPCS: 77066; G0279; 77062